=== PATIENT | female | born 1995 | race Caucasian/White ===

== ENCOUNTER 2018-04-28 00:22 | Inpatient (IN) | payer OTHER ==
[2018-04-28] MEDS ORDERED: Carboprost Tromethamine 250 MCG/1 ML Amp IM PRN (00:31)
[2018-04-28] MEDS ORDERED: Misoprostol 200 MCG Tab PO PRN (00:31)
[2018-04-28] MEDS ORDERED: Sodium Chloride 0.9% 2.5 ML Syringe FLUSH PRN (00:31)
[2018-04-28] MEDS ORDERED: Water For Irrigation,Sterile 1,000 ML Container IRR PRN (00:31)
[2018-04-28] MEDS ORDERED: Lidocaine 1% 50 ML MDV INJECT PRN (00:31)
[2018-04-28] MEDS ORDERED: Tranexamic Acid 1,000 MG in Sodium Chloride 0.9% 100 ML IV PRN (00:31)
[2018-04-28] MEDS ORDERED: Misoprostol 25 MCG (1/4 of 100 MCG) Tab PO PRN ×2 (00:31→06:56)
[2018-04-28] MEDS ORDERED: Sodium Chloride 0.9% 10 ML Syringe FLUSH PRN (00:31)
[2018-04-28] MEDS ORDERED: Methylergonovine 0.2 MG/1 ML Amp IM PRN (00:31)
[2018-04-28] MEDS ORDERED: Misoprostol 25 MCG (1/4 of 100 MCG) Tab VAG PRN ×2 (00:31)
[2018-04-28] MEDS ORDERED: Terbutaline 1 MG/ML SDV SUBCUT PRN (00:31)
[2018-04-28] MEDS ORDERED: Butorphanol 1 MG/ML SDV IVPUSH PRN (00:31)
[2018-04-28] MEDS ORDERED: Nalbuphine 10 MG/1 ML Vial IVPUSH PRN (00:31)
[2018-04-28] MEDS ORDERED: Oxytocin/0.9 % Sodium Chloride 30 UNIT/500 ML BAG IV SCH ×2 (00:45)
[2018-04-28] MEDS: Lactated Ringers 1,000 ML IV SCH ×3 (04:42→11:23)
--- NOTE | 2018-04-28 08:16 | PCM.LDHP ---
L&D History of Present Illness - General Date of Service: 04/28/18 Admit Problem/Dx: Patient Status Order with Admit Dx/Problem 04/28/18 00:31 Patient Status [ADT] Routine Admission Diagnosis/Problem Admission Diagnosis/Problem 04/28/18 08:11 22 yo EDC 04/22/2018 40 6/7wks, A+, RI, GBS neg. IOL GDMA1, post dates Source of Information: Patient History Limitations: Reports: No Limitations - History of Present Illness Improves with: Reports: None Worsens with: Reports: None Associated Symptoms: Reports: N - Related Data Allergies/Adverse Reactions: Allergies Allergy/AdvReac Type Severity Reaction Status Date / Time No Known Allergies Allergy Verified 04/28/18 00:29 Home Medications: Home Meds Multivitamin [Multi-Vitamin Daily] 1 each PO 04/28/18 [History] H&P Review of Systems - Review of Systems: Review Of Systems: See Below General: Reports: No Symptoms HEENT: Reports: No Symptoms Pulmonary: Reports: No Symptoms Cardiovascular: Reports: No Symptoms Gastrointestinal: Reports: No Symptoms Genitourinary: Reports: No Symptoms Musculoskeletal: Reports: No Symptoms Skin: Reports: No Symptoms Psychiatric: Reports: No Symptoms Neurological: Reports: No Symptoms Hematologic/Lymphatic: Reports: No Symptoms Immunologic: Reports: No Symptoms L&D Exam - Exam Exam: See Below - Vital Signs Weight: 87.997 kg - OB Specific Contraction Intensity: Mild Movement: Active Heart Tones: Present Heart Tones per Min: 135 Heart Rate (FHR) Variability: Moderate (6-25 bmp) Presentation: Vertex Estimated Weight: 3200 - Shaver Score Shaver Score Cervix Position: Anterior Shaver Score Consistency: Medium Shaver Score Effacement: >80% Shaver Score Dilation: 3-4 cm Shaver Score 's Station: -2 Shaver Score Total: 9 - Exam General: Alert, Oriented, Cooperative HEENT: Hearing Intact Lungs: Clear to Auscultation, Normal Respiratory Effort Cardiovascular: Regular Rate, Regular Rhythm, Normal S1, Normal S2 GI/Abdominal Exam: Normal Bowel Sounds, Soft, Non-Tender, No Organomegaly, No Distention, No Abnormal Bruit, No Mass, Pelvis Stable Rectal Exam: Deferred Genitourinary: Cervical dilitation Back Exam: Normal Inspection, Full Range of Motion Extremities: Normal Inspection, Normal Range of Motion, Non-Tender, No Pedal Edema, Normal Capillary Refill Skin: Warm, Dry, Intact Neurological: Cranial Nerves Intact, Reflexes Equal Bilateral, Strength Equal Bilateral, Normal Speech, Normal Tone Psychiatric: Alert, Normal Affect, Normal Mood - Patient Data Lab Results Last 24 hrs: Laboratory Results - last 24 hr 04/28/18 04/28/18 Range/Units 00:55 00:55 WBC 9.41 (4.0-11.0) K/uL RBC 3.87 L (4.30-5.90) M/uL Hgb 11.8 L (12.0-16.0) g/dL Hct 36.5 (36.0-46.0) % MCV 94.3 (80.0-98.0) fL MCH 30.5 (27.0-32.0) pg MCHC 32.3 (31.0-37.0) g/dL RDW Std Deviation 42.8 (28.0-62.0) fl RDW Coeff of Deyvi 13 (11.0-15.0) % Plt Count 192 (150-400) K/uL MPV 11.20 (7.40-12.00) fL Blood Type A POSITIVE Antibody Screen NEGATIVE Result Diagrams: 04/28/18 00:55 - Problem List (1) Supervision of normal IUP (intrauterine ) in primigravida SNOMED Code(s): 71635211, 847283456, 983875760, 801853394 ICD Code: Z34.00 - ENCNTR FOR SUPRVSN OF NORMAL FIRST , UNSP TRIMESTER Status: Acute Priority: High Current Visit: Yes Qualifiers: Trimester: third trimester Qualified Code(s): Z34.03 - Encounter for supervision of normal first , third trimester (2) GDM (gestational diabetes mellitus), class A1 SNOMED Code(s): 10932794 ICD Code: O24.410 - GESTATIONAL DIABETES MELLITUS IN , DIET CONTROLLED Status: Acute Priority: High Current Visit: Yes Problem List Initiated/Reviewed/Updated: Yes Orders Last 24hrs: Active Orders 24 hr Category Date Time Status Patient Status [ADT] Routine ADT 04/28/18 00:31 Active Bedrest Bathroom Privileges [RC] ASDIRECTED Care 04/28/18 00:31 Active Communication Order [RC] ASDIRECTED Care 04/28/18 00:31 Active Communication Order [RC] ASDIRECTED Care 04/28/18 00:31 Active May Shower [RC] ASDIRECTED Care 04/28/18 00:31 Active Notify Provider [RC] PRN Care 04/28/18 00:31 Active Notify Provider [RC] PRN Care 04/28/18 00:31 Active Notify Provider [RC] STAT Care 04/28/18 00:31 Active Oxygen Therapy [RC] ASDIRECTED Care 04/28/18 00:31 Active Up ad Sandra [RC] ASDIRECTED Care 04/28/18 00:31 Active Vital Signs [RC] PER UNIT ROUTINE Care 04/28/18 00:31 Active Vital Signs [RC] PER UNIT ROUTINE Care 04/28/18 00:31 Active Regular Diet [DIET] Diet 04/28/18 Breakfast Active Butorphanol [Stadol] Med 04/28/18 00:31 Active 1 mg IVPUSH Q1H PRN Carboprost Tromethamine [Hemabate DS] Med 04/28/18 00:31 Active 250 mcg IM ASDIRECTED PRN Lactated Ringers [Ringers, Lactated] 1,000 ml Med 04/28/18 00:45 Active IV ASDIRECTED Lidocaine 1% [Xylocaine 1%] Med 04/28/18 00:31 Active 50 ml INJECT ONETIME PRN Methylergonovine [Methergine] Med 04/28/18 00:31 Active 0.2 mg IM ASDIRECTED PRN Nalbuphine [Nubain] Med 04/28/18 00:31 Active 10 mg IVPUSH Q1H PRN Oxytocin/0.9 % Sodium Chloride [Oxytocin 30 Unit/500 ML Med 04/28/18 00:45 Active -NS] 30 unit in 500 ml IV TITRATE Oxytocin/0.9 % Sodium Chloride [Oxytocin 30 Unit/500 ML Med 04/28/18 00:45 Active -NS] 30 unit in 500 ml IV TITRATE Sodium Chloride 0.9% [Saline Flush] Med 04/28/18 00:31 Active 10 ml FLUSH ASDIRECTED PRN Sodium Chloride 0.9% [Saline Flush] Med 04/28/18 00:31 Active 2.5 ml FLUSH ASDIRECTED PRN Terbutaline [Brethine] Med 04/28/18 00:31 Active 0.25 mg SUBCUT ASDIRECTED PRN Tranexamic Acid [Cyklokapron] 1,000 mg Med 04/28/18 00:31 Active Sodium Chloride 0.9% [Normal Saline] 100 ml IV ONETIME Water For Irrigation,Sterile [Sterile Water for Med 04/28/18 00:31 Active Irrigation] 1,000 ml IRR ASDIRECTED PRN miSOPROStol [Cytotec] Med 04/28/18 00:31 Active 200 mcg PO ONETIME PRN miSOPROStol [Cytotec] Med 04/28/18 00:31 Active 25 mcg PO ONETIME PRN miSOPROStol [Cytotec] Med 04/28/18 06:56 Active 25 mcg PO Q4H PRN miSOPROStol [Cytotec] Med 04/28/18 00:31 Active 25 mcg VAG ONETIME PRN miSOPROStol [Cytotec] Med 04/28/18 00:31 Active 25 mcg VAG Q4H PRN Scalp Electrode [WOMSER] Per Unit Routine Oth 04/28/18 00:31 Ordered Medication Administration Instruction [OM.PC] Q3H Oth 04/28/18 00:45 Ordered Peripheral IV Insertion Adult [OM.PC] Routine Oth 04/28/18 00:31 Ordered Resuscitation Status Routine Resus Stat 04/28/18 00:31 Ordered Medication Orders Butorphanol Tartrate (Stadol) 1 mg IVPUSH Q1H PRN PRN Reason: Pain Carboprost Tromethamine (Hemabate Ds) 250 mcg IM ASDIRECTED PRN PRN Reason: Post Hemorrhage Lactated Ringer's (Ringers, Lactated) 1,000 mls @ 150 mls/hr IV ASDIRECTED KANDI Last Admin: 04/28/18 06:20 Dose: 150 mls/hr Infusion: 04/28/18 05:43 Dose: 999 mls/hr Admin: 04/28/18 04:42 Dose: 999 mls/hr Oxytocin/Sodium Chloride (Oxytocin 30 Unit/500 Ml-Ns) 30 unit in 500 mls @ 500 mls/hr IV TITRATE KANDI Oxytocin/Sodium Chloride (Oxytocin 30 Unit/500 Ml-Ns) 30 unit in 500 mls @ 2 mls/hr IV TITRATE [facility]; Protocol Tranexamic Acid 1,000 mg/ (Sodium Chloride) 110 mls @ 660 mls/hr IV ONETIME PRN PRN Reason: Bleeding Lidocaine HCl (Xylocaine 1%) 50 ml INJECT ONETIME PRN PRN Reason: Laceration repair Methylergonovine Maleate (Methergine) 0.2 mg IM ASDIRECTED PRN PRN Reason: Post Hemorrhage Misoprostol (Cytotec) 200 mcg PO ONETIME PRN PRN Reason: Post Hemorrhage Misoprostol (Cytotec) 25 mcg VAG ONETIME PRN PRN Reason: Cervical Ripening Last Admin: 04/28/18 02:56 Dose: 25 mcg Misoprostol (Cytotec) 25 mcg VAG Q4H PRN PRN Reason: Cervical Ripening Last Admin: 04/28/18 07:13 Dose: 25 mcg Misoprostol (Cytotec) 25 mcg PO ONETIME PRN PRN Reason: Cervical Ripening Last Admin: 04/28/18 03:02 Dose: 25 mcg Misoprostol (Cytotec) 25 mcg PO Q4H PRN PRN Reason: Other Last Admin: 04/28/18 07:18 Dose: 25 mcg Nalbuphine HCl (Nubain) 10 mg IVPUSH Q1H PRN PRN Reason: Pain (severe 7-10) Sodium Chloride (Saline Flush) 10 ml FLUSH ASDIRECTED PRN PRN Reason: Keep Vein Open Sodium Chloride (Saline Flush) 2.5 ml FLUSH ASDIRECTED PRN PRN Reason: Keep Vein Open Sterile Water (Sterile Water For Irrigation) 1,000 ml IRR ASDIRECTED PRN PRN Reason: delivery Terbutaline Sulfate (Brethine) 0.25 mg SUBCUT ASDIRECTED PRN PRN Reason: Tacysystole Assessment/Plan Comment:: IOL A: 22 yo EDC 04/22/2018 40 6/7wks, A+, RI, GBS neg. IOL GDMA1, post dates. Glucose well controlled during P: Admit, cytotec to pitocin, anticipate . Dr Solis update
[2018-04-28] MEDS ORDERED: fentaNYL 100 MCG/2 ML SDV ONE (10:54)
[2018-04-28] MEDS ORDERED: Ropivacaine 0.2% 2 MG/ML 20 ML SDV ONE (10:55)
[2018-04-28] MEDS ORDERED: Ropivacaine HCl/PF 100 ML ONE (10:55)
--- NOTE | 2018-04-28 11:37 | PCM.PREANE ---
Preanesthetic Assessment - Anesthesia/Transfusion/Family Hx Anesthesia History: Prior Anesthesia Without Reaction Family History of Anesthesia Reaction: No Transfusion History: No Prior Transfusion(s) Intubation History: Unknown - Review of Systems General: No Symptoms Pulmonary: No Symptoms Cardiovascular: No Symptoms Gastrointestinal: No Symptoms Neurological: No Symptoms Other: Reports: None - Physical Assessment NPO Status Date: 04/28/18 NPO Status Time: 11:35 (sips and chips) Pulse: 76 O2 Sat by Pulse Oximetry: 100 Respiratory Rate: 24 Blood Pressure: 124/76 Height: 5 ft 8 in Weight: 87.997 kg ASA Class: 2 Mental Status: Alert & Oriented x3 Airway Class: Mallampati = 2 Dentition: Reports: Normal Dentition Thyro-Mental Finger Breadths: 3 Mouth Opening Finger Breadths: 3 ROM/Head Extension: Full Lungs: Clear to Auscultation, Normal Respiratory Effort Cardiovascular: Regular Rate, Regular Rhythm - Lab Values: Laboratory Last Values WBC 9.41 K/uL (4.0-11.0) 04/28/18 00:55 RBC 3.87 M/uL (4.30-5.90) L 04/28/18 00:55 Hgb 11.8 g/dL (12.0-16.0) L 04/28/18 00:55 Hct 36.5 % (36.0-46.0) 04/28/18 00:55 MCV 94.3 fL (80.0-98.0) 04/28/18 00:55 MCH 30.5 pg (27.0-32.0) 04/28/18 00:55 MCHC 32.3 g/dL (31.0-37.0) 04/28/18 00:55 RDW Std Deviation 42.8 fl (28.0-62.0) 04/28/18 00:55 RDW Coeff of Deyvi 13 % (11.0-15.0) 04/28/18 00:55 Plt Count 192 K/uL (150-400) 04/28/18 00:55 MPV 11.20 fL (7.40-12.00) 04/28/18 00:55 Blood Type A POSITIVE 04/28/18 00:55 Antibody Screen NEGATIVE 04/28/18 00:55 - Allergies Allergies/Adverse Reactions: Allergies Allergy/AdvReac Type Severity Reaction Status Date / Time No Known Allergies Allergy Verified 04/28/18 00:29 - Blood Blood Available: No - Acknowledgements Anesthesia Type Planned: Epidural Pt an Appropriate Candidate for the Planned Anesthesia: Yes Alternatives and Risks of Anesthesia Discussed w Pt/Guardian: Yes Pt/Guardian Understands and Agrees with Anesthesia Plan: Yes PreAnesthesia Questionnaire Genitourinary History: Reports: Other (See Below) Other Genitourinary History: At age of 2 pt had surgery to remove an extra ureter [employer] History: Reports: Dermatologic History: Reports: Other (See Below) Other Dermatologic History: Acne - Past Surgical History Female Surgical History: Reports: None - HOME MEDS Home Medications: Home Meds Multivitamin [Multi-Vitamin Daily] 1 each PO 04/28/18 [History] - CURRENT (IN HOUSE) MEDS Current Meds: Current Medications Butorphanol Tartrate (Stadol) 1 mg IVPUSH Q1H PRN PRN Reason: Pain Carboprost Tromethamine (Hemabate Ds) 250 mcg IM ASDIRECTED PRN PRN Reason: Post Hemorrhage Lactated Ringer's (Ringers, Lactated) 1,000 mls @ 150 mls/hr IV ASDIRECTED KANDI Last Admin: 04/28/18 11:23 Dose: 500 mls/hr Oxytocin/Sodium Chloride (Oxytocin 30 Unit/500 Ml-Ns) 30 unit in 500 mls @ 500 mls/hr IV TITRATE KANDI Oxytocin/Sodium Chloride (Oxytocin 30 Unit/500 Ml-Ns) 30 unit in 500 mls @ 2 mls/hr IV TITRATE KANDI; Protocol Tranexamic Acid 1,000 mg/ (Sodium Chloride) 110 mls @ 660 mls/hr IV ONETIME PRN PRN Reason: Bleeding Lidocaine HCl (Xylocaine 1%) 50 ml INJECT ONETIME PRN PRN Reason: Laceration repair Methylergonovine Maleate (Methergine) 0.2 mg IM ASDIRECTED PRN PRN Reason: Post Hemorrhage Misoprostol (Cytotec) 200 mcg PO ONETIME PRN PRN Reason: Post Hemorrhage Misoprostol (Cytotec) 25 mcg VAG ONETIME PRN PRN Reason: Cervical Ripening Last Admin: 04/28/18 02:56 Dose: 25 mcg Misoprostol (Cytotec) 25 mcg VAG Q4H PRN PRN Reason: Cervical Ripening Last Admin: 04/28/18 07:13 Dose: 25 mcg Misoprostol (Cytotec) 25 mcg PO ONETIME PRN PRN Reason: Cervical Ripening Last Admin: 04/28/18 03:02 Dose: 25 mcg Misoprostol (Cytotec) 25 mcg PO Q4H PRN PRN Reason: Other Last Admin: 04/28/18 07:18 Dose: 25 mcg Nalbuphine HCl (Nubain) 10 mg IVPUSH Q1H PRN PRN Reason: Pain (severe 7-10) Last Admin: 04/28/18 10:31 Dose: 10 mg Sodium Chloride (Saline Flush) 10 ml FLUSH ASDIRECTED PRN PRN Reason: Keep Vein Open Sodium Chloride (Saline Flush) 2.5 ml FLUSH ASDIRECTED PRN PRN Reason: Keep Vein Open Sterile Water (Sterile Water For Irrigation) 1,000 ml IRR ASDIRECTED PRN PRN Reason: delivery Terbutaline Sulfate (Brethine) 0.25 mg SUBCUT ASDIRECTED PRN PRN Reason: Tacysystole Discontinued Medications Fentanyl (Sublimaze) Confirm Administered Dose 200 mcg .ROUTE .STK-MED ONE Stop: 04/28/18 10:55 Ropivacaine (Naropin 0.2%) Confirm Administered Dose 100 mls @ as directed .ROUTE .STK-MED ONE Stop: 04/28/18 10:56 Ropivacaine (Naropin 0.2%) Confirm Administered Dose 20 ml .ROUTE .STK-MED ONE Stop: 04/28/18 10:56
--- NOTE | 2018-04-28 12:37 | PCM.DEL ---
L & D Note - General Info Date of Service: 04/28/18 Mother's Due Date: 04/22/18 - Delivery Note Labor: Spontaneous Delivery Outcome: Stillbirth Infant Delivery Method: Spontaneous Vaginal Delivery-Single Delivery Mode: Spontaneous Presentation: Vertex Nuchal Cord: None Anesthesia Type: Epidural Episiotomy Type: None Laceration: None Placenta: Intact, Spontaneous Cord: 3 Vessels Estimated Blood Loss: 150 Resuscitation Needed: No Score 1 min: 9 Score 5 min: 9 Second Stage Interventions: Reports: Pushing, Pulls Own Legs Back Induction Criteria - Shaver Score Shaver Score Dilation: 3-4 cm Shaver Score Effacement: 60-70% Shaver Score 's Station: -2 Shaver Score Consistency: Soft Shaver Score Cervix Position: Anterior Shaver Score Total: 9 Shaver Score Presenting Part: Reports: Cephalic - Induction Gestational Age >/= 39 wks: Yes Medical Indication: Post dates GDMA1 Reassuring Monitoring Strip: Yes Absence of Tachy Systole: Yes - General Info Date of Service: 04/28/18 Functional Status: Reports: Pain Controlled - Review of Systems General: Reports: No Symptoms HEENT: Reports: No Symptoms Pulmonary: Reports: No Symptoms Cardiovascular: Reports: No Symptoms Gastrointestinal: Reports: No Symptoms Genitourinary: Reports: No Symptoms Musculoskeletal: Reports: No Symptoms Skin: Reports: No Symptoms Neurological: Reports: No Symptoms Psychiatric: Reports: No Symptoms - Patient Data Vitals - Most Recent: Last Vital Signs Temp Pulse 76 04/28/18 11:37 Resp 24 H 04/28/18 11:37 BP 124/76 04/28/18 11:37 Pulse Ox 100 04/28/18 11:37 Weight - Most Recent: 87.997 kg Lab Results Last 24 Hours: Laboratory Results - last 24 hr 04/28/18 04/28/18 Range/Units 00:55 00:55 WBC 9.41 (4.0-11.0) K/uL RBC 3.87 L (4.30-5.90) M/uL Hgb 11.8 L (12.0-16.0) g/dL Hct 36.5 (36.0-46.0) % MCV 94.3 (80.0-98.0) fL MCH 30.5 (27.0-32.0) pg MCHC 32.3 (31.0-37.0) g/dL RDW Std Deviation 42.8 (28.0-62.0) fl RDW Coeff of Deyvi 13 (11.0-15.0) % Plt Count 192 (150-400) K/uL MPV 11.20 (7.40-12.00) fL Blood Type A POSITIVE Antibody Screen NEGATIVE Med Orders - Current: Current Medications Butorphanol Tartrate (Stadol) 1 mg IVPUSH Q1H PRN PRN Reason: Pain Carboprost Tromethamine (Hemabate Ds) 250 mcg IM ASDIRECTED PRN PRN Reason: Post Hemorrhage Lactated Ringer's (Ringers, Lactated) 1,000 mls @ 150 mls/hr IV ASDIRECTED KANDI Last Infusion: 04/28/18 11:53 Dose: 150 mls/hr Oxytocin/Sodium Chloride (Oxytocin 30 Unit/500 Ml-Ns) 30 unit in 500 mls @ 500 mls/hr IV TITRATE KANDI Oxytocin/Sodium Chloride (Oxytocin 30 Unit/500 Ml-Ns) 30 unit in 500 mls @ 2 mls/hr IV TITRATE KANDI; Protocol Tranexamic Acid 1,000 mg/ (Sodium Chloride) 110 mls @ 660 mls/hr IV ONETIME PRN PRN Reason: Bleeding Lidocaine HCl (Xylocaine 1%) 50 ml INJECT ONETIME PRN PRN Reason: Laceration repair Methylergonovine Maleate (Methergine) 0.2 mg IM ASDIRECTED PRN PRN Reason: Post Hemorrhage Misoprostol (Cytotec) 200 mcg PO ONETIME PRN PRN Reason: Post Hemorrhage Misoprostol (Cytotec) 25 mcg VAG ONETIME PRN PRN Reason: Cervical Ripening Last Admin: 04/28/18 02:56 Dose: 25 mcg Misoprostol (Cytotec) 25 mcg VAG Q4H PRN PRN Reason: Cervical Ripening Last Admin: 04/28/18 07:13 Dose: 25 mcg Misoprostol (Cytotec) 25 mcg PO ONETIME PRN PRN Reason: Cervical Ripening Last Admin: 04/28/18 03:02 Dose: 25 mcg Misoprostol (Cytotec) 25 mcg PO Q4H PRN PRN Reason: Other Last Admin: 04/28/18 07:18 Dose: 25 mcg Nalbuphine HCl (Nubain) 10 mg IVPUSH Q1H PRN PRN Reason: Pain (severe 7-10) Last Admin: 04/28/18 10:31 Dose: 10 mg Sodium Chloride (Saline Flush) 10 ml FLUSH ASDIRECTED PRN PRN Reason: Keep Vein Open Sodium Chloride (Saline Flush) 2.5 ml FLUSH ASDIRECTED PRN PRN Reason: Keep Vein Open Sterile Water (Sterile Water For Irrigation) 1,000 ml IRR ASDIRECTED PRN PRN Reason: delivery Terbutaline Sulfate (Brethine) 0.25 mg SUBCUT ASDIRECTED PRN PRN Reason: Tacysystole Discontinued Medications Fentanyl (Sublimaze) Confirm Administered Dose 200 mcg .ROUTE .STK-MED ONE Stop: 04/28/18 10:55 Ropivacaine (Naropin 0.2%) Confirm Administered Dose 100 mls @ as directed .ROUTE .STK-MED ONE Stop: 04/28/18 10:56 Ropivacaine (Naropin 0.2%) Confirm Administered Dose 20 ml .ROUTE .STK-MED ONE Stop: 04/28/18 10:56 - Exam General: Alert, Oriented, Cooperative, No Acute Distress Lungs: Normal Respiratory Effort GI/Abdominal Exam: Soft, Non-Tender, No Organomegaly, No Distention, No Abnormal Bruit, No Mass, Pelvis Stable (Female) Exam: Normal External Exam, Normal Bimanual Exam Back Exam: Normal Inspection, Full Range of Motion Extremities: Normal Range of Motion, Non-Tender, No Pedal Edema Skin: Warm, Dry, Intact Wound/Incisions: Healing Well Neurological: No New Focal Deficit, Normal Speech, Normal Tone, Strength Equal Bilateral Psy/Mental Status: Alert, Normal Affect, Normal Mood - Problem List & Annotations (1) Supervision of normal IUP (intrauterine ) in primigravida SNOMED Code(s): 60405363, 375001054, 604590657, 343320124 Code(s): Z34.00 - ENCNTR FOR SUPRVSN OF NORMAL FIRST , UNSP TRIMESTER Status: Acute Priority: High Current Visit: Yes Qualifiers: Trimester: third trimester Qualified Code(s): Z34.03 - Encounter for supervision of normal first , third trimester (2) GDM (gestational diabetes mellitus), class A1 SNOMED Code(s): 29227917 Code(s): O24.410 - GESTATIONAL DIABETES MELLITUS IN , DIET CONTROLLED Status: Acute Priority: High Current Visit: Yes (3) (normal spontaneous vaginal delivery) SNOMED Code(s): 60591867 Code(s): O80 - ENCOUNTER FOR FULL-TERM UNCOMPLICATED DELIVERY Status: Acute Priority: High Current Visit: Yes - Problem List Review Problem List Initiated/Reviewed/Updated: Yes - My Orders Last 24 Hours: My Active Orders 04/28/18 00:31 Patient Status [ADT] Routine Bedrest Bathroom Privileges [RC] ASDIRECTED Communication Order [RC] ASDIRECTED Communication Order [RC] ASDIRECTED May Shower [RC] ASDIRECTED Notify Provider [RC] PRN Notify Provider [RC] PRN Notify Provider [RC] STAT Oxygen Therapy [RC] ASDIRECTED Up ad Sandra [RC] ASDIRECTED Vital Signs [RC] PER UNIT ROUTINE Vital Signs [RC] PER UNIT ROUTINE Butorphanol [Stadol] 1 mg IVPUSH Q1H PRN Carboprost Tromethamine [Hemabate DS] 250 mcg IM ASDIRECTED PRN Lidocaine 1% [Xylocaine 1%] 50 ml INJECT ONETIME PRN Methylergonovine [Methergine] 0.2 mg IM ASDIRECTED PRN Nalbuphine [Nubain] 10 mg IVPUSH Q1H PRN Sodium Chloride 0.9% [Saline Flush] 10 ml FLUSH ASDIRECTED PRN Sodium Chloride 0.9% [Saline Flush] 2.5 ml FLUSH ASDIRECTED PRN Terbutaline [Brethine] 0.25 mg SUBCUT ASDIRECTED PRN Tranexamic Acid [Cyklokapron] 1,000 mg Sodium Chloride 0.9% [Normal Saline] 100 ml IV ONETIME Water For Irrigation,Sterile [Sterile Water for Irrigation] 1,000 ml IRR ASDIRECTED PRN miSOPROStol [Cytotec] 200 mcg PO ONETIME PRN miSOPROStol [Cytotec] 25 mcg PO ONETIME PRN miSOPROStol [Cytotec] 25 mcg VAG ONETIME PRN miSOPROStol [Cytotec] 25 mcg VAG Q4H PRN Scalp Electrode [WOMSER] Per Unit Routine Peripheral IV Insertion Adult [OM.PC] Routine Resuscitation Status Routine 04/28/18 00:45 Lactated Ringers [Ringers, Lactated] 1,000 ml IV ASDIRECTED Oxytocin/0.9 % Sodium Chloride [Oxytocin 30 Unit/500 ML-NS] 30 unit in 500 ml IV TITRATE Oxytocin/0.9 % Sodium Chloride [Oxytocin 30 Unit/500 ML-NS] 30 unit in 500 ml IV TITRATE Medication Administration Instruction [OM.PC] Q3H 04/28/18 06:56 miSOPROStol [Cytotec] 25 mcg PO Q4H PRN 04/28/18 Breakfast Regular Diet [DIET] - Plan Plan:: IOL A: 22 yo EDC 04/22/2018 40 6/7wks, A+, RI, GBS neg. IOL GDMA1, post dates. Glucose well controlled during P: Admit, cytotec to pitocin, anticipate . Dr Solis update Delivery A: of viable female, APGARS 9/9, Wt pending, Intact, EBL 150cc, Mother and baby bonding well P: Routine pp plan of care
[2018-04-28] MEDS ORDERED: Witch Hazel Medicated Pads 40/Jar TOP PRN (12:38)
[2018-04-28] MEDS ORDERED: Ibuprofen 800 MG Tab PO PRN (12:38)
[2018-04-28] MEDS ORDERED: Benzocaine/Menthol 20%-0.5% Spray 78 GM Cannister TOP PRN (12:38)
[2018-04-28] MEDS ORDERED: Docusate Sodium 100 MG Cap PO PRN (12:38)
[2018-04-28] MEDS ORDERED: Ibuprofen 400 MG Tab PO PRN (12:38)
[2018-04-28] MEDS ORDERED: Bisacodyl 10 MG Supp RECTAL PRN (12:38)
[2018-04-28] MEDS ORDERED: Lanolin 100% Cream 7 GM Tube TOP PRN (12:38)
[2018-04-28] MEDS ORDERED: Acetaminophen 500 MG Tab PO PRN ×2 (12:38)
[2018-04-28] MEDS ORDERED: oxyCODONE 5 MG Tab PO PRN (12:38)
--- NOTE | 2018-04-28 15:44 | PCM48HPAN ---
Post Anesthesia Note - EVALUATION WITHIN 48HRS OF ANESTHETIC Vital Signs in Normal Range: Yes Patient Participated in Evaluation: Yes Respiratory Function Stable: Yes Airway Patent: Yes Cardiovascular Function Stable: Yes Hydration Status Stable: Yes Pain Control Satisfactory: Yes Nausea and Vomiting Control Satisfactory: Yes Mental Status Recovered: Yes Pulse Rate: 76 Resp Rate: 24 Blood Pressure: 124/76
--- NOTE | 2018-04-29 08:09 | PCM.DCSUM1 ---
Discharge Summary - Hospital Course Free Text/Narrative:: Discharge home with . Follow up in 6 weeks for post . Diagnosis: Stroke: No - Discharge Data Discharge Date: 04/29/18 Discharge Disposition: Home, Self-Care 01 Condition: Good - Discharge Diagnosis/Problem(s) (1) Supervision of normal IUP (intrauterine ) in primigravida SNOMED Code(s): 82753088, 812666806, 534155224, 091920877 ICD Code: Z34.00 - ENCNTR FOR SUPRVSN OF NORMAL FIRST , UNSP TRIMESTER Status: Acute Priority: High Current Visit: Yes Qualifiers: Trimester: third trimester Qualified Code(s): Z34.03 - Encounter for supervision of normal first , third trimester (2) GDM (gestational diabetes mellitus), class A1 SNOMED Code(s): 55500562 ICD Code: O24.410 - GESTATIONAL DIABETES MELLITUS IN , DIET CONTROLLED Status: Acute Priority: High Current Visit: Yes (3) (normal spontaneous vaginal delivery) SNOMED Code(s): 65896395 ICD Code: O80 - ENCOUNTER FOR FULL-TERM UNCOMPLICATED DELIVERY Status: Acute Priority: High Current Visit: Yes - Patient Instructions Diet: Usual Diet as Tolerated Activity: As Tolerated, No Strenuous Activities, Rest and Relax Today Driving: May Drive Today Showering/Bathing: May Shower Notify Provider of: Fever, Increased Pain, Swelling and Redness, Nausea and/or Vomiting Other/Special Instructions: Discharge home with infant. Follow up in 6 weeks for post . - Discharge Plan *PRESCRIPTION DRUG MONITORING PROGRAM REVIEWED*: Not Applicable *COPY OF PRESCRIPTION DRUG MONITORING REPORT IN PATIENT JAMES: Not Applicable Home Medications: Home Meds Multivitamin [Multi-Vitamin Daily] 1 each PO 04/28/18 [History] Referrals: [facility] [Outside] Latoya Gordon CNM [Mid-] - 06/09/18 10:45 am - General Info Date of Service: 04/29/18 Admission Dx/Problem (Free Text: Patient Status Order with Admit Dx/Problem 04/28/18 00:31 Patient Status [ADT] Routine Admission Diagnosis/Problem Admission Diagnosis/Problem 04/28/18 08:11 22 yo EDC 04/22/2018 40 6/7wks, A+, RI, GBS neg. IOL GDMA1, post dates Functional Status: Reports: Pain Controlled, Tolerating Diet, Ambulating, Urinating - Review of Systems General: Reports: No Symptoms HEENT: Reports: No Symptoms Pulmonary: Reports: No Symptoms Cardiovascular: Reports: No Symptoms Gastrointestinal: Reports: No Symptoms Genitourinary: Reports: No Symptoms Musculoskeletal: Reports: No Symptoms Skin: Reports: No Symptoms Neurological: Reports: No Symptoms Psychiatric: Reports: No Symptoms - Patient Data Vitals - Most Recent: Last Vital Signs Temp 36.7 C 04/29/18 07:40 Pulse 85 04/29/18 07:40 Resp 16 04/29/18 07:40 BP 109/70 04/29/18 07:40 Pulse Ox 99 04/29/18 07:40 Weight - Most Recent: 87.997 kg Med Orders - Current: Current Medications Acetaminophen (Tylenol Extra Strength) 500 mg PO Q4H PRN PRN Reason: Pain Acetaminophen (Tylenol Extra Strength) 1,000 mg PO Q4H PRN PRN Reason: Pain Benzocaine/Menthol (Dermoplast Pain Relief 20%-0.5% [place]) 78 gm TOP ASDIRECTED PRN PRN Reason: Perineal Comfort Measure Bisacodyl (Dulcolax) 10 mg RECTAL ONETIME PRN PRN Reason: Constipation Docusate Sodium (Colace) 100 mg PO BID PRN PRN Reason: Constipation Emollient Ointment (Lansinoh Hpa) 0 gm TOP ASDIRECTED PRN PRN Reason: Sore Nipples Ibuprofen (Motrin) 400 mg PO Q4H PRN PRN Reason: Pain Ibuprofen (Motrin) 800 mg PO Q6H PRN PRN Reason: Pain Last Admin: 04/28/18 18:10 Dose: 800 mg Oxycodone HCl (Oxycodone) 5 mg PO Q2H PRN PRN Reason: Pain Witch Concepcion (Tucks) 1 pad TOP ASDIRECTED PRN PRN Reason: comfort care Discontinued Medications Butorphanol Tartrate (Stadol) 1 mg IVPUSH Q1H PRN PRN Reason: Pain Carboprost Tromethamine (Hemabate Ds) 250 mcg IM ASDIRECTED PRN PRN Reason: Post Hemorrhage Fentanyl (Sublimaze) Confirm Administered Dose 200 mcg .ROUTE .STK-MED ONE Stop: 04/28/18 10:55 Lactated Ringer's (Ringers, Lactated) 1,000 mls @ 150 mls/hr IV ASDIRECTED KANDI Last Infusion: 04/28/18 12:15 Dose: 0 mls/hr Oxytocin/Sodium Chloride (Oxytocin 30 Unit/500 Ml-Ns) 30 unit in 500 mls @ 500 mls/hr IV TITRATE KANDI Last Admin: 04/28/18 13:13 Dose: 500 mls/hr Oxytocin/Sodium Chloride (Oxytocin 30 Unit/500 Ml-Ns) 30 unit in 500 mls @ 2 mls/hr IV TITRATE KANDI; Protocol Tranexamic Acid 1,000 mg/ (Sodium Chloride) 110 mls @ 660 mls/hr IV ONETIME PRN PRN Reason: Bleeding Ropivacaine (Naropin 0.2%) Confirm Administered Dose 100 mls @ as directed .ROUTE .[employer] ONE Stop: 04/28/18 10:56 Lidocaine HCl (Xylocaine 1%) 50 ml INJECT ONETIME PRN PRN Reason: Laceration repair Methylergonovine Maleate (Methergine) 0.2 mg IM ASDIRECTED PRN PRN Reason: Post Hemorrhage Misoprostol (Cytotec) 200 mcg PO ONETIME PRN PRN Reason: Post Hemorrhage Misoprostol (Cytotec) 25 mcg VAG ONETIME PRN PRN Reason: Cervical Ripening Last Admin: 04/28/18 02:56 Dose: 25 mcg Misoprostol (Cytotec) 25 mcg VAG Q4H PRN PRN Reason: Cervical Ripening Last Admin: 04/28/18 07:13 Dose: 25 mcg Misoprostol (Cytotec) 25 mcg PO ONETIME PRN PRN Reason: Cervical Ripening Last Admin: 04/28/18 03:02 Dose: 25 mcg Misoprostol (Cytotec) 25 mcg PO Q4H PRN PRN Reason: Other Last Admin: 04/28/18 07:18 Dose: 25 mcg Nalbuphine HCl (Nubain) 10 mg IVPUSH Q1H PRN PRN Reason: Pain (severe 7-10) Last Admin: 04/28/18 10:31 Dose: 10 mg Ropivacaine (Naropin 0.2%) Confirm Administered Dose 20 ml .ROUTE .[employer]MED ONE Stop: 04/28/18 10:56 Sodium Chloride (Saline Flush) 10 ml FLUSH ASDIRECTED PRN PRN Reason: Keep Vein Open Sodium Chloride (Saline Flush) 2.5 ml FLUSH ASDIRECTED PRN PRN Reason: Keep Vein Open Sterile Water (Sterile Water For Irrigation) 1,000 ml IRR ASDIRECTED PRN PRN Reason: delivery Terbutaline Sulfate (Brethine) 0.25 mg SUBCUT ASDIRECTED PRN PRN Reason: Tacysystole - Exam General: Reports: Alert, Oriented, Cooperative, No Acute Distress Lungs: Reports: Normal Respiratory Effort GI/Abdominal Exam: Soft, Non-Tender (Female) Exam: Deferred Rectal (Female) Exam: Deferred Back Exam: Reports: Normal Inspection, Full Range of Motion Extremities: Normal Inspection, Normal Range of Motion, Non-Tender, No Pedal Edema, Normal Capillary Refill Skin: Reports: Warm, Dry, Intact Wound/Incisions: Reports: Healing Well Neurological: Reports: No New Focal Deficit, Normal Speech, Normal Tone, Strength Equal Bilateral Psy/Mental Status: Reports: Alert, Normal Affect, Normal Mood
== END 2018-04-29 16:20 | disposition home or self-care (01) | DRG 775 ==
LOC: MW.OBCHECK 00:22 → MW.OB 00:24 → MW.OBCHECK 00:31 → MW.OB 00:31 → OBSVTOIN 12:13 → MW.OB 16:16
PROVIDERS: ADMIT Obstetrics & Gynecology; ATTEND Obstetrics & Gynecology
PROC: 10E0XZZ Delivery of Products of Conception, External Approach (ICD-10-PCS; principal; 2018-04-28)
PROC: 3E0P7VZ Introduction of Hormone into Female Reproductive, Via Natural or Artificial Opening (ICD-10-PCS; 2018-04-28)
PROC: 3E033VJ Introduction of Other Hormone into Peripheral Vein, Percutaneous Approach (ICD-10-PCS; 2018-04-28)
PROC: 00HU33Z Insertion of Infusion Device into Spinal Canal, Percutaneous Approach (ICD-10-PCS; 2018-04-28)
DX: O24.420 Gestational diabetes mellitus in childbirth, diet controlled (principal); O48.0 Post-term pregnancy; Z3A.40 40 weeks gestation of pregnancy; Z37.0 Single live birth
CPT/HCPCS: 36415; 59020; 59409; 85027; 86850; 86900; 86901; A9270-GY; J2300; J2590; J7120

== ENCOUNTER 2019-12-03 05:08 | Inpatient (IN) | payer OTHER ==
[2019-12-03] MEDS ORDERED: Lidocaine 1% 50 ML MDV INJECT PRN (05:23)
[2019-12-03] MEDS ORDERED: Misoprostol 200 MCG Tab PO PRN (05:23)
[2019-12-03] MEDS ORDERED: Sodium Chloride 0.9% 10 ML SDV IV PRN (05:23)
[2019-12-03] MEDS ORDERED: Water For Irrigation,Sterile 1,000 ML Container IRR PRN (05:23)
[2019-12-03] MEDS ORDERED: Tranexamic Acid 1,000 MG in Sodium Chloride 0.9% 100 ML IV PRN (05:23)
[2019-12-03] MEDS ORDERED: Terbutaline 1 MG/ML SDV SUBCUT PRN (05:23)
[2019-12-03] MEDS ORDERED: Carboprost Tromethamine 250 MCG/1 ML Amp IM PRN (05:23)
[2019-12-03] MEDS ORDERED: Misoprostol 25 MCG (1/4 of 100 MCG) Tab VAG PRN ×2 (05:23)
[2019-12-03] MEDS ORDERED: Sodium Chloride 0.9% 10 ML Syringe FLUSH PRN (05:23)
[2019-12-03] MEDS ORDERED: Sodium Chloride 0.9% 2.5 ML Syringe FLUSH PRN (05:23)
[2019-12-03] MEDS ORDERED: Methylergonovine 0.2 MG/1 ML Amp IM PRN (05:23)
[2019-12-03] MEDS ORDERED: Nalbuphine 10 MG/1 ML Vial IVPUSH PRN (05:23)
[2019-12-03] MEDS ORDERED: Ondansetron 4 MG/2 ML SDV IVPUSH PRN (05:23)
[2019-12-03] MEDS ORDERED: Butorphanol 1 MG/ML SDV IVPUSH PRN (05:23)
[2019-12-03] MEDS ORDERED: Oxytocin/0.9 % Sodium Chloride 30 UNIT/500 ML BAG IV SCH ×2 (05:30)
[2019-12-03] MEDS ORDERED: Misoprostol 25 MCG (1/4 of 100 MCG) Tab PO ONE (05:31)
[2019-12-03] MEDS: Lactated Ringers 1,000 ML IV SCH ×2 (07:18→15:38)
[2019-12-03] MEDS ORDERED: Misoprostol 25 MCG (1/4 of 100 MCG) Tab PO SCH (11:30)
--- NOTE | 2019-12-03 15:55 | PCM.LDHP ---
L&D History of Present Illness - General Date of Service: 12/03/19 Admit Problem/Dx: Patient Status Order with Admit Dx/Problem 12/03/19 05:23 Patient Status [ADT] Routine Admission Diagnosis/Problem Admission Diagnosis/Problem 12/03/19 15:50 24yo EDC 12/10/2019 39 0/7wks, A+, RI, GBS neg. IOL for term Source of Information: Patient History Limitations: Reports: No Limitations - History of Present Illness Improves with: Reports: None Worsens with: Reports: None Associated Symptoms: Reports: N - Related Data Allergies/Adverse Reactions: Allergies Allergy/AdvReac Type Severity Reaction Status Date / Time No Known Allergies Allergy Verified 04/28/18 00:29 Home Medications: Home Meds Multivitamin [Multi-Vitamin Daily] 1 each PO 04/28/18 [History] Past Medical History Genitourinary History: Reports: Other (See Below) Other Genitourinary History: At age of 2 pt had surgery to remove an extra ureter MANAGER ANALYSIS History: Reports: Dermatologic History: Reports: Other (See Below) Other Dermatologic History: Acne - Past Surgical History HEENT Surgical History: Reports: Eye Surgery Female Surgical History: Reports: None Social & Family History - Family History Family Medical History: Noncontributory - Tobacco Use Smoking Status *Q: Never Smoker Second Hand Smoke Exposure: No - Caffeine Use Caffeine Use: Reports: Coffee - Recreational Drug Use Recreational Drug Use: No H&P Review of Systems - Review of Systems: Review Of Systems: See Below General: Reports: No Symptoms HEENT: Reports: No Symptoms Pulmonary: Reports: No Symptoms Cardiovascular: Reports: No Symptoms Gastrointestinal: Reports: No Symptoms Genitourinary: Reports: No Symptoms Musculoskeletal: Reports: No Symptoms Skin: Reports: No Symptoms Psychiatric: Reports: No Symptoms Neurological: Reports: No Symptoms Hematologic/Lymphatic: Reports: No Symptoms Immunologic: Reports: No Symptoms L&D Exam - Exam Exam: See Below - Vital Signs Weight: 92.079 kg - OB Specific Contraction Intensity: Moderate Movement: Active Heart Tones: Present Heart Tones per Min: 131 Heart Rate (FHR) Variability: Moderate (6-25 bmp) Presentation: Vertex - Shaver Score Shaver Score Cervix Position: Midposition Shaver Score Consistency: Soft Shaver Score Effacement: >80% Shaver Score Dilation: 3-4 cm Shaver Score Infant's Station: -2 Shaver Score Total: 9 - Exam HEENT: Conjunctiva Clear, Hearing Intact Lungs: Clear to Auscultation, Normal Respiratory Effort. No: Decreased Breath Sounds Cardiovascular: Regular Rate, Regular Rhythm, Normal S1, Normal S2 GI/Abdominal Exam: Soft, Non-Tender, No Distention, Pelvis Stable Rectal Exam: Deferred Genitourinary: Normal external exam, Normal bimanual exam, Cervical dilitation, Cervical fluid. No: Vaginal bleeding Back Exam: Normal Inspection, Full Range of Motion Extremities: Normal Inspection, Normal Range of Motion, Non-Tender, No Pedal Edema Skin: Warm, Dry, Intact Neurological: Cranial Nerves Intact, Strength Equal Bilateral, Normal Speech, Normal Tone, Sensation Intact Psychiatric: Alert, Normal Affect, Normal Mood - Patient Data Lab Results Last 24 hrs: Laboratory Results - last 24 hr 12/03/19 12/03/19 Range/Units 06:38 06:38 WBC 9.49 (4.0-11.0) K/uL RBC 3.62 L (4.30-5.90) M/uL Hgb 10.3 L (12.0-16.0) g/dL Hct 32.8 L (36.0-46.0) % MCV 90.6 (80.0-98.0) fL MCH 28.5 (27.0-32.0) pg MCHC 31.4 (31.0-37.0) g/dL RDW Std Deviation 43.4 (28.0-62.0) fl RDW Coeff of Deyvi 13 (11.0-15.0) % Plt Count 167 (150-400) K/uL MPV 11.90 (7.40-12.00) fL Nucleated RBC % 0.0 /100WBC Nucleated RBCs # 0 K/uL Blood Type A POSITIVE Antibody Screen NEGATIVE Result Diagrams: 12/03/19 06:38 - Problem List (1) Supervision of normal IUP (intrauterine ) in multigravida SNOMED Code(s): 959591326, 343508427, 547739801 ICD Code: Z34.80 - ENCOUNTER FOR SUPRVSN OF NORMAL , UNSP TRIMESTER Status: Acute Priority: High Current Visit: Yes Qualifiers: Trimester: third trimester Qualified Code(s): Z34.83 - Encounter for supervision of other normal , third trimester Problem List Initiated/Reviewed/Updated: Yes Orders Last 24hrs: Active Orders 24 hr Category Date Time Status Patient Status [ADT] Routine ADT 12/03/19 05:23 Active Bedrest Bathroom Privileges [RC] ASDIRECTED Care 12/03/19 05:23 Active Communication Order [RC] ASDIRECTED Care 12/03/19 05:23 Active Communication Order [RC] ASDIRECTED Care 12/03/19 05:23 Active Communication Order [RC] ASDIRECTED Care 12/03/19 05:23 Active Heart Tones [RC] CONTINUOUS Care 12/03/19 05:23 Active Non Stress Test [RC] PER UNIT ROUTINE Care 12/03/19 05:23 Active May Shower [RC] ASDIRECTED Care 12/03/19 05:23 Active Notify Provider [RC] PRN Care 12/03/19 05:23 Active Notify Provider [RC] PRN Care 12/03/19 05:23 Active Notify Provider [RC] PRN Care 12/03/19 05:23 Active Notify Provider [RC] STAT Care 12/03/19 05:23 Active Oxygen Therapy [RC] ASDIRECTED Care 12/03/19 05:23 Active Up ad Sandra [RC] ASDIRECTED Care 12/03/19 05:23 Active Vaginal Exam [RC] PRN Care 12/03/19 05:23 Active Vaginal Exam [RC] PRN Care 12/03/19 05:23 Active Vital Signs [RC] PER UNIT ROUTINE Care 12/03/19 05:23 Active Vital Signs [RC] PER UNIT ROUTINE Care 12/03/19 05:23 Active RPR (SYPHILIS SERO) W/ RFLX [REF] Routine Lab 12/03/19 06:35 Received Butorphanol [Stadol] Med 12/03/19 05:23 Active 1 mg IVPUSH Q1H PRN Carboprost Tromethamine [Hemabate DS] Med 12/03/19 05:23 Active 250 mcg IM ASDIRECTED PRN Lactated Ringers [Ringers, Lactated] 1,000 ml Med 12/03/19 05:30 Active IV ASDIRECTED Lidocaine 1% [Xylocaine 1%] Med 12/03/19 05:23 Active 50 ml INJECT ONETIME PRN Methylergonovine [Methergine] Med 12/03/19 05:23 Active 0.2 mg IM ASDIRECTED PRN Nalbuphine [Nubain] Med 12/03/19 05:23 Active 10 mg IVPUSH Q1H PRN Ondansetron [Zofran] Med 12/03/19 05:23 Active 4 mg IVPUSH Q4H PRN Oxytocin/0.9 % Sodium Chloride [Oxytocin 30 Unit/500 ML Med 12/03/19 05:30 Active -NS] 30 unit in 500 ml IV TITRATE Oxytocin/0.9 % Sodium Chloride [Oxytocin 30 Unit/500 ML Med 12/03/19 05:30 Active -NS] 30 unit in 500 ml IV TITRATE Sodium Chloride 0.9% [Normal Saline] Med 12/03/19 05:23 Active 10 ml IV ASDIRECTED PRN Sodium Chloride 0.9% [Saline Flush] Med 12/03/19 05:23 Active 10 ml FLUSH ASDIRECTED PRN Sodium Chloride 0.9% [Saline Flush] Med 12/03/19 05:23 Active 2.5 ml FLUSH ASDIRECTED PRN Terbutaline [Brethine] Med 12/03/19 05:23 Active 0.25 mg SUBCUT ASDIRECTED PRN Tranexamic Acid [Cyklokapron] 1,000 mg Med 12/03/19 05:23 Active Sodium Chloride 0.9% [Normal Saline] 100 ml IV ONETIME Water For Irrigation,Sterile [Sterile Water for Med 12/03/19 05:23 Active Irrigation] 1,000 ml IRR ASDIRECTED PRN miSOPROStoL [Cytotec] Med 12/03/19 05:23 Active 200 mcg PO ONETIME PRN miSOPROStoL [Cytotec] Med 12/03/19 11:30 Active 25 mcg PO Q4H miSOPROStoL [Cytotec] Med 12/03/19 05:23 Active 25 mcg VAG ONETIME PRN miSOPROStoL [Cytotec] Med 12/03/19 05:23 Active 25 mcg VAG Q4H PRN Scalp Electrode [WOMSER] Per Unit Routine Oth 12/03/19 05:23 Ordered Medication Administration Instruction [OM.PC] Q3H Oth 12/03/19 05:30 Ordered Peripheral IV Insertion Adult [OM.PC] Routine Oth 12/03/19 05:23 Ordered Resuscitation Status Routine Resus Stat 12/03/19 05:23 Ordered Medication Orders Butorphanol Tartrate (Stadol) 1 mg IVPUSH Q1H PRN PRN Reason: Pain Carboprost Tromethamine (Hemabate Ds) 250 mcg IM ASDIRECTED PRN PRN Reason: Post Hemorrhage Lactated Ringer's (Ringers, Lactated) 1,000 mls @ 150 mls/hr IV ASDIRECTED KANDI Last Admin: 12/03/19 15:38 Dose: 150 mls/hr Infusion: 12/03/19 13:59 Dose: 150 mls/hr Admin: 12/03/19 07:18 Dose: 150 mls/hr Oxytocin/Sodium Chloride (Oxytocin 30 Unit/500 Ml-Ns) 30 unit in 500 mls @ 999 mls/hr IV TITRATE KANDI Oxytocin/Sodium Chloride (Oxytocin 30 Unit/500 Ml-Ns) 30 unit in 500 mls @ 2 mls/hr IV TITRATE KANDI; Protocol Tranexamic Acid 1,000 mg/ (Sodium Chloride) 110 mls @ 660 mls/hr IV ONETIME PRN PRN Reason: Bleeding Lidocaine HCl (Xylocaine 1%) 50 ml INJECT ONETIME PRN PRN Reason: Laceration repair Methylergonovine Maleate (Methergine) 0.2 mg IM ASDIRECTED PRN PRN Reason: Post Hemorrhage Misoprostol (Cytotec) 200 mcg PO ONETIME PRN PRN Reason: Post Hemorrhage Misoprostol (Cytotec) 25 mcg VAG ONETIME PRN PRN Reason: Cervical Ripening Last Admin: 12/03/19 07:21 Dose: 25 mcg Misoprostol (Cytotec) 25 mcg VAG Q4H PRN PRN Reason: Cervical Ripening Last Admin: 12/03/19 11:20 Dose: 25 mcg Misoprostol (Cytotec) 25 mcg PO Q4H KANDI Last Admin: 12/03/19 11:20 Dose: 25 mcg Nalbuphine HCl (Nubain) 10 mg IVPUSH Q1H PRN PRN Reason: Pain (severe 7-10) Ondansetron HCl (Zofran) 4 mg IVPUSH Q4H PRN PRN Reason: Nausea/Vomiting Sodium Chloride (Saline Flush) 10 ml FLUSH ASDIRECTED PRN PRN Reason: Keep Vein Open Sodium Chloride (Saline Flush) 2.5 ml FLUSH ASDIRECTED PRN PRN Reason: Keep Vein Open Sodium Chloride (Normal Saline) 10 ml IV ASDIRECTED PRN PRN Reason: IV Use Sterile Water (Sterile Water For Irrigation) 1,000 ml IRR ASDIRECTED PRN PRN Reason: delivery Terbutaline Sulfate (Brethine) 0.25 mg SUBCUT ASDIRECTED PRN PRN Reason: Tacysystole Assessment/Plan Comment:: IOL A: 24yo EDC 12/10/2019 39 0/7wks, A+, RI, GBS neg. IOL for term P: Admit, cytotec to pitocin if needed, epidural now, anticipate , Dr Solis updated.
[2019-12-03] MEDS ORDERED: Ropivacaine 0.2% PF 2 MG/ML 20 ML SDV ONE (16:35)
[2019-12-03] MEDS ORDERED: Bupivicaine/fentaNYL/NS 250 ML ONE (16:35)
--- NOTE | 2019-12-03 17:12 | PCM.PREANE ---
Preanesthetic Assessment - Procedure Proposed Procedure: labor epidural - Anesthesia/Transfusion/Family Hx Anesthesia History: Prior Anesthesia Without Reaction Family History of Anesthesia Reaction: No Transfusion History: No Prior Transfusion(s) Intubation History: Unknown - Review of Systems General: No Symptoms Pulmonary: Cough Cardiovascular: No Symptoms Gastrointestinal: No Symptoms Neurological: No Symptoms Other: Reports: None - Physical Assessment Height: 5 ft 8 in Weight: 92.079 kg ASA Class: 2 Mental Status: Alert & Oriented x3 Airway Class: Mallampati = 1 Dentition: Reports: Normal Dentition Thyro-Mental Finger Breadths: 3 Mouth Opening Finger Breadths: 3 ROM/Head Extension: Full Lungs: Clear to Auscultation, Normal Respiratory Effort - Lab Values: Laboratory Last Values WBC 9.49 K/uL (4.0-11.0) 12/03/19 06:38 RBC 3.62 M/uL (4.30-5.90) L 12/03/19 06:38 Hgb 10.3 g/dL (12.0-16.0) L 12/03/19 06:38 Hct 32.8 % (36.0-46.0) L 12/03/19 06:38 MCV 90.6 fL (80.0-98.0) 12/03/19 06:38 MCH 28.5 pg (27.0-32.0) 12/03/19 06:38 MCHC 31.4 g/dL (31.0-37.0) 12/03/19 06:38 RDW Std Deviation 43.4 fl (28.0-62.0) 12/03/19 06:38 RDW Coeff of Deyvi 13 % (11.0-15.0) 12/03/19 06:38 Plt Count 167 K/uL (150-400) 12/03/19 06:38 MPV 11.90 fL (7.40-12.00) 12/03/19 06:38 Nucleated RBC % 0.0 /100WBC 12/03/19 06:38 Nucleated RBCs # 0 K/uL 12/03/19 06:38 Blood Type A POSITIVE 12/03/19 06:38 Antibody Screen NEGATIVE 12/03/19 06:38 - Allergies Allergies/Adverse Reactions: Allergies Allergy/AdvReac Type Severity Reaction Status Date / Time No Known Allergies Allergy Verified 04/28/18 00:29 - Blood Blood Available: Yes Product(s) Available: PRBC - Anesthesia Plan Pre-Op Medication Ordered: None - Acknowledgements Anesthesia Type Planned: Epidural Pt an Appropriate Candidate for the Planned Anesthesia: Yes Alternatives and Risks of Anesthesia Discussed w Pt/Guardian: Yes Pt/Guardian Understands and Agrees with Anesthesia Plan: Yes PreAnesthesia Questionnaire Genitourinary History: Reports: Other (See Below) Other Genitourinary History: At age of 2 pt had surgery to remove an extra ureter 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: Dermatologic History: Reports: Other (See Below) Other Dermatologic History: Acne - Past Surgical History HEENT Surgical History: Reports: Eye Surgery Female Surgical History: Reports: None - SUBSTANCE USE Smoking Status *Q: Never Smoker Second Hand Smoke Exposure: No Recreational Drug Use History: No - HOME MEDS Home Medications: Home Meds Multivitamin [Multi-Vitamin Daily] 1 each PO 04/28/18 [History] - CURRENT (IN HOUSE) MEDS Current Meds: Current Medications Butorphanol Tartrate (Stadol) 1 mg IVPUSH Q1H PRN PRN Reason: Pain Carboprost Tromethamine (Hemabate Ds) 250 mcg IM ASDIRECTED PRN PRN Reason: Post Hemorrhage Lactated Ringer's (Ringers, Lactated) 1,000 mls @ 150 mls/hr IV ASDIRECTED KANDI Last Admin: 12/03/19 15:38 Dose: 150 mls/hr Oxytocin/Sodium Chloride (Oxytocin 30 Unit/500 Ml-Ns) 30 unit in 500 mls @ 999 mls/hr IV TITRATE KANDI Oxytocin/Sodium Chloride (Oxytocin 30 Unit/500 Ml-Ns) 30 unit in 500 mls @ 2 mls/hr IV TITRATE KANDI; Protocol Tranexamic Acid 1,000 mg/ (Sodium Chloride) 110 mls @ 660 mls/hr IV ONETIME PRN PRN Reason: Bleeding Lidocaine HCl (Xylocaine 1%) 50 ml INJECT ONETIME PRN PRN Reason: Laceration repair Methylergonovine Maleate (Methergine) 0.2 mg IM ASDIRECTED PRN PRN Reason: Post Hemorrhage Misoprostol (Cytotec) 200 mcg PO ONETIME PRN PRN Reason: Post Hemorrhage Misoprostol (Cytotec) 25 mcg VAG ONETIME PRN PRN Reason: Cervical Ripening Last Admin: 12/03/19 07:21 Dose: 25 mcg Misoprostol (Cytotec) 25 mcg VAG Q4H PRN PRN Reason: Cervical Ripening Last Admin: 12/03/19 11:20 Dose: 25 mcg Misoprostol (Cytotec) 25 mcg PO Q4H KANDI Last Admin: 12/03/19 11:20 Dose: 25 mcg Nalbuphine HCl (Nubain) 10 mg IVPUSH Q1H PRN PRN Reason: Pain (severe 7-10) Ondansetron HCl (Zofran) 4 mg IVPUSH Q4H PRN PRN Reason: Nausea/Vomiting Sodium Chloride (Saline Flush) 10 ml FLUSH ASDIRECTED PRN PRN Reason: Keep Vein Open Sodium Chloride (Saline Flush) 2.5 ml FLUSH ASDIRECTED PRN PRN Reason: Keep Vein Open Sodium Chloride (Normal Saline) 10 ml IV ASDIRECTED PRN PRN Reason: IV Use Sterile Water (Sterile Water For Irrigation) 1,000 ml IRR ASDIRECTED PRN PRN Reason: delivery Terbutaline Sulfate (Brethine) 0.25 mg SUBCUT ASDIRECTED PRN PRN Reason: Tacysystole Discontinued Medications Fentanyl/Bupivacaine HCl (Fentanyl/Bupivacaine/Ns 2 Mcg-0.125% 250 Ml) Confirm Administered Dose 250 mls @ as directed .ROUTE .STK-MED ONE Stop: 12/03/19 16:36 Misoprostol (Cytotec) 25 mcg PO ONETIME ONE Stop: 12/03/19 05:32 Last Admin: 12/03/19 07:21 Dose: 25 mcg Ropivacaine (Naropin 0.2%) Confirm Administered Dose 20 ml .ROUTE .STK-MED ONE Stop: 12/03/19 16:36
--- NOTE | 2019-12-03 18:53 | PCM.DEL ---
L & D Note - General Info Date of Service: 12/03/19 Mother's Due Date: 12/10/19 - Delivery Note Labor: Spontaneous Delivery Outcome: Livebirth Infant Delivery Method: Spontaneous Vaginal Delivery-Single Delivery Mode: Spontaneous Presentation: Vertex Nuchal Cord: None Anesthesia Type: Epidural Amniotic Fluid Description: Clear Episiotomy Type: None Laceration: None Placenta: Intact, Spontaneous Score 1 min: 9 Score 5 min: 9 Second Stage Interventions: Reports: Pushing, Pulls Own Legs Back Delivery Comments (Free Text/Narrative):: of viable male. Head delivered with good pushing, shoulders and body followed easily. with spont cry placed on mothers abdomen. RN at for evaluation of infant. Delayed cord clamping. Pitocin to IVF. Cord clamped and cut. Cord blood collected. Placenta delivered grossly intact. Inspection noted intact perineum. EBL 100. APGARS 9/9, WT: pending bonding. Mother and baby left in stable condition for recovery. - General Info Date of Service: 12/03/19 Admission Dx/Problem (Free Text): Patient Status Order with Admit Dx/Problem 12/03/19 05:23 Patient Status [ADT] Routine Admission Diagnosis/Problem Admission Diagnosis/Problem 12/03/19 15:50 24yo EDC 12/10/2019 39 0/7wks, A+, RI, GBS neg. IOL for term Functional Status: Reports: Pain Controlled - Review of Systems General: Reports: No Symptoms HEENT: Reports: No Symptoms Pulmonary: Reports: No Symptoms Cardiovascular: Reports: No Symptoms Gastrointestinal: Reports: No Symptoms Genitourinary: Reports: No Symptoms Musculoskeletal: Reports: No Symptoms Skin: Reports: No Symptoms Neurological: Reports: No Symptoms Psychiatric: Reports: No Symptoms - Patient Data Weight - Most Recent: 92.079 kg Lab Results Last 24 Hours: Laboratory Results - last 24 hr 12/03/19 12/03/19 Range/Units 06:38 06:38 WBC 9.49 (4.0-11.0) K/uL RBC 3.62 L (4.30-5.90) M/uL Hgb 10.3 L (12.0-16.0) g/dL Hct 32.8 L (36.0-46.0) % MCV 90.6 (80.0-98.0) fL MCH 28.5 (27.0-32.0) pg MCHC 31.4 (31.0-37.0) g/dL RDW Std Deviation 43.4 (28.0-62.0) fl RDW Coeff of Deyvi 13 (11.0-15.0) % Plt Count 167 (150-400) K/uL MPV 11.90 (7.40-12.00) fL Nucleated RBC % 0.0 /100WBC Nucleated RBCs # 0 K/uL Blood Type A POSITIVE Antibody Screen NEGATIVE Med Orders - Current: Current Medications Butorphanol Tartrate (Stadol) 1 mg IVPUSH Q1H PRN PRN Reason: Pain Carboprost Tromethamine (Hemabate Ds) 250 mcg IM ASDIRECTED PRN PRN Reason: Post Hemorrhage Lactated Ringer's (Ringers, Lactated) 1,000 mls @ 150 mls/hr IV ASDIRECTED KANDI Last Admin: 12/03/19 15:38 Dose: 150 mls/hr Oxytocin/Sodium Chloride (Oxytocin 30 Unit/500 Ml-Ns) 30 unit in 500 mls @ 999 mls/hr IV TITRATE KANDI Oxytocin/Sodium Chloride (Oxytocin 30 Unit/500 Ml-Ns) 30 unit in 500 mls @ 2 mls/hr IV TITRATE KANDI; Protocol Tranexamic Acid 1,000 mg/ (Sodium Chloride) 110 mls @ 660 mls/hr IV ONETIME PRN PRN Reason: Bleeding Lidocaine HCl (Xylocaine 1%) 50 ml INJECT ONETIME PRN PRN Reason: Laceration repair Methylergonovine Maleate (Methergine) 0.2 mg IM ASDIRECTED PRN PRN Reason: Post Hemorrhage Misoprostol (Cytotec) 200 mcg PO ONETIME PRN PRN Reason: Post Hemorrhage Misoprostol (Cytotec) 25 mcg VAG ONETIME PRN PRN Reason: Cervical Ripening Last Admin: 12/03/19 07:21 Dose: 25 mcg Misoprostol (Cytotec) 25 mcg VAG Q4H PRN PRN Reason: Cervical Ripening Last Admin: 12/03/19 11:20 Dose: 25 mcg Misoprostol (Cytotec) 25 mcg PO Q4H KANDI Last Admin: 12/03/19 11:20 Dose: 25 mcg Nalbuphine HCl (Nubain) 10 mg IVPUSH Q1H PRN PRN Reason: Pain (severe 7-10) Ondansetron HCl (Zofran) 4 mg IVPUSH Q4H PRN PRN Reason: Nausea/Vomiting Sodium Chloride (Saline Flush) 10 ml FLUSH ASDIRECTED PRN PRN Reason: Keep Vein Open Sodium Chloride (Saline Flush) 2.5 ml FLUSH ASDIRECTED PRN PRN Reason: Keep Vein Open Sodium Chloride (Normal Saline) 10 ml IV ASDIRECTED PRN PRN Reason: IV Use Sterile Water (Sterile Water For Irrigation) 1,000 ml IRR ASDIRECTED PRN PRN Reason: delivery Terbutaline Sulfate (Brethine) 0.25 mg SUBCUT ASDIRECTED PRN PRN Reason: Tacysystole Discontinued Medications Fentanyl/Bupivacaine HCl (Fentanyl/Bupivacaine/Ns 2 Mcg-0.125% 250 Ml) Confirm Administered Dose 250 mls @ as directed .ROUTE .STK-MED ONE Stop: 12/03/19 16:36 Misoprostol (Cytotec) 25 mcg PO ONETIME ONE Stop: 12/03/19 05:32 Last Admin: 12/03/19 07:21 Dose: 25 mcg Ropivacaine (Naropin 0.2%) Confirm Administered Dose 20 ml .ROUTE .STK-MED ONE Stop: 12/03/19 16:36 - Exam General: Alert, Oriented Lungs: Normal Respiratory Effort GI/Abdominal Exam: Soft, Non-Tender (Female) Exam: Normal External Exam, Normal Bimanual Exam, Vaginal Bleeding. No: Cervical Lesions, Vaginal Lesions, Vaginal Tears Back Exam: Normal Inspection, Full Range of Motion Extremities: Normal Inspection, Normal Range of Motion, Non-Tender, No Pedal Edema Skin: Warm, Dry, Intact Neurological: No New Focal Deficit, Normal Gait, Normal Speech, Normal Tone, Sensation Intact Psy/Mental Status: Alert, Normal Affect, Normal Mood - Problem List & Annotations (1) Supervision of normal IUP (intrauterine ) in multigravida SNOMED Code(s): 631442735, 789868529, 930421581 Code(s): Z34.80 - ENCOUNTER FOR SUPRVSN OF NORMAL , UNSP TRIMESTER Status: Acute Priority: High Current Visit: Yes Qualifiers: Trimester: third trimester Qualified Code(s): Z34.83 - Encounter for supervision of other normal , third trimester (2) (normal spontaneous vaginal delivery) SNOMED Code(s): 30421379, 395866893 Code(s): O80 - ENCOUNTER FOR FULL-TERM UNCOMPLICATED DELIVERY Status: Acute Priority: High Current Visit: No - Problem List Review Problem List Initiated/Reviewed/Updated: Yes - My Orders Last 24 Hours: My Active Orders 12/03/19 11:30 miSOPROStoL [Cytotec] 25 mcg PO Q4H - Plan Plan:: IOL A: 24yo EDC 12/10/2019 39 0/7wks, A+, RI, GBS neg. IOL for term P: Admit, cytotec to pitocin if needed, epidural now, anticipate , Dr Solis updated. Delivery A: of healthy male, AGPARS 04/17, WT: pending, EBL 100cc, Intact perineum. Stable P: Routine pp plan of care.
[2019-12-03] MEDS ORDERED: Ibuprofen 400 MG Tab PO PRN (18:58)
[2019-12-03] MEDS ORDERED: Benzocaine/Menthol 20%-0.5% Spray 78 GM Cannister TOP PRN (18:58)
[2019-12-03] MEDS ORDERED: Witch Hazel Medicated Pads 40/Jar TOP PRN (18:58)
[2019-12-03] MEDS ORDERED: Lanolin 100% Cream 7 GM Tube TOP PRN (18:58)
[2019-12-03] MEDS ORDERED: Ibuprofen 800 MG Tab PO PRN (18:58)
[2019-12-03] MEDS ORDERED: Bisacodyl 10 MG Supp RECTAL PRN (18:58)
[2019-12-03] MEDS ORDERED: Acetaminophen 500 MG Tab PO PRN ×2 (18:58)
[2019-12-03] MEDS ORDERED: oxyCODONE 5 MG Tab PO PRN (18:58)
[2019-12-03] MEDS ORDERED: Docusate Sodium 100 MG Cap PO PRN (18:58)
--- NOTE | 2019-12-04 06:09 | PCM48HPAN ---
Post Anesthesia Note - EVALUATION WITHIN 48HRS OF ANESTHETIC Vital Signs in Normal Range: Yes Patient Participated in Evaluation: Yes Respiratory Function Stable: Yes Airway Patent: Yes Cardiovascular Function Stable: Yes Hydration Status Stable: Yes Pain Control Satisfactory: Yes Nausea and Vomiting Control Satisfactory: Yes Mental Status Recovered: Yes Vital Signs: Last Vital Signs Temp 36.0 C L 12/04/19 04:22 Pulse 75 12/04/19 04:22 Resp 16 12/04/19 04:22 BP 135/85 12/04/19 04:22 Pulse Ox 99 12/04/19 04:22
--- NOTE | 2019-12-04 08:54 | PCM.DCSUM1 ---
Discharge Summary - Hospital Course Free Text/Narrative:: Robyn is a 24 yo PPD1 S/P uncomplicated to viable term NBM. A pos, RI , GBS neg. Hemodynamically stable. Breast+bottle feeding well. Patient verbalizes a readiness and desire to be discharged home today pending supervisor assembly. Diagnosis: Stroke: No - Discharge Data Discharge Date: 12/04/19 Discharge Disposition: Home, Self-Care 01 Condition: Good - Referral to Home Health Primary Care Physician: PCP None - Patient Instructions Diet: Regular Diet as Tolerated, Drink 8-10+ Glasses/Day Activity: Apply Ice, Full Weight Bearing, No Strenuous Activities Driving: May Drive Today Showering/Bathing: May Shower Notify Provider of: Fever, Increased Pain, Swelling and Redness, Drainage, Nausea and/or Vomiting - Discharge Plan *PRESCRIPTION DRUG MONITORING PROGRAM REVIEWED*: No *COPY OF PRESCRIPTION DRUG MONITORING REPORT IN PATIENT JAMES: No Prescriptions/Med Rec: Ibuprofen [Motrin] 800 mg PO Q8H PRN #90 tablet PRN Reason: Pain Home Medications: Home Meds Multivitamin [Multi-Vitamin Daily] 1 each PO 04/28/18 [History] Ibuprofen [Motrin] 800 mg PO Q8H PRN #90 tablet 12/04/19 [Rx] Oxygen Therapy Mode: Room Air - Discharge Summary/Plan Comment DC Time >30 min.: Yes Discharge Summary/Plan Comment: Robyn is a 24 yo PPD1 S/P uncomplicated to viable term NBM. A pos, RI , GBS neg. Hemodynamically stable. Breast+bottle feeding well. Patient verbalizes a readiness and desire to be discharged home today pending supervisor assembly. warning S/S, when to call for help discussed with patient. She has no questions or concerns at this time. OK to discharge home. - General Info Date of Service: 12/04/19 Admission Dx/Problem (Free Text: Patient Status Order with Admit Dx/Problem 12/03/19 05:23 Patient Status [ADT] Routine Admission Diagnosis/Problem Admission Diagnosis/Problem 12/03/19 15:50 24yo EDC 12/10/2019 39 0/7wks, A+, RI, GBS neg. IOL for term Functional Status: Reports: Pain Controlled - Review of Systems General: Reports: No Symptoms HEENT: Reports: No Symptoms Pulmonary: Reports: No Symptoms Cardiovascular: Reports: No Symptoms Gastrointestinal: Reports: No Symptoms Genitourinary: Reports: No Symptoms Musculoskeletal: Reports: No Symptoms Skin: Reports: No Symptoms Neurological: Reports: No Symptoms Psychiatric: Reports: No Symptoms - Patient Data Vitals - Most Recent: Last Vital Signs Temp 96.8 F L 12/04/19 04:22 Pulse 75 12/04/19 04:22 Resp 16 12/04/19 04:22 BP 135/85 12/04/19 04:22 Pulse Ox 99 12/04/19 04:22 Weight - Most Recent: 203 lb I&O - Last 24 hours: Intake & Output 12/03/19 12/04/19 12/04/19 22:59 06:59 14:59 Output Total 300 Balance -300 Med Orders - Current: Current Medications Acetaminophen (Tylenol Extra Strength) 500 mg PO Q4H PRN PRN Reason: Pain Acetaminophen (Tylenol Extra Strength) 1,000 mg PO Q4H PRN PRN Reason: Pain Benzocaine/Menthol (Dermoplast Pain Relief 20%-0.5% [place]) 78 gm TOP ASDIRECTED PRN PRN Reason: Perineal Comfort Measure Last Admin: 12/03/19 21:00 Dose: 1 spray Bisacodyl (Dulcolax) 10 mg RECTAL ONETIME PRN PRN Reason: Constipation Docusate Sodium (Colace) 100 mg PO BID PRN PRN Reason: Constipation Emollient Ointment (Lansinoh Hpa) 0 gm TOP ASDIRECTED PRN PRN Reason: Sore Nipples Last Admin: 12/03/19 21:01 Dose: 1 gm Ibuprofen (Motrin) 400 mg PO Q4H PRN PRN Reason: Pain Ibuprofen (Motrin) 800 mg PO Q6H PRN PRN Reason: Pain Last Admin: 12/04/19 00:46 Dose: 800 mg Oxycodone HCl (Oxycodone) 5 mg PO Q2H PRN PRN Reason: Pain Witch Concepcion (Tucks) 1 pad TOP ASDIRECTED PRN PRN Reason: comfort care Last Admin: 12/03/19 21:00 Dose: 1 pad Discontinued Medications Butorphanol Tartrate (Stadol) 1 mg IVPUSH Q1H PRN PRN Reason: Pain Carboprost Tromethamine (Hemabate Ds) 250 mcg IM ASDIRECTED PRN PRN Reason: Post Hemorrhage Lactated Ringer's (Ringers, Lactated) 1,000 mls @ 150 mls/hr IV ASDIRECTED KANDI Last Admin: 12/03/19 15:38 Dose: 150 mls/hr Oxytocin/Sodium Chloride (Oxytocin 30 Unit/500 Ml-Ns) 30 unit in 500 mls @ 999 mls/hr IV TITRATE KANDI Last Admin: 12/03/19 18:37 Dose: 500 mls/hr Oxytocin/Sodium Chloride (Oxytocin 30 Unit/500 Ml-Ns) 30 unit in 500 mls @ 2 mls/hr IV TITRATE KANDI; Protocol Tranexamic Acid 1,000 mg/ (Sodium Chloride) 110 mls @ 660 mls/hr IV ONETIME PRN PRN Reason: Bleeding Fentanyl/Bupivacaine HCl (Fentanyl/Bupivacaine/Ns 2 Mcg-0.125% 250 Ml) Confirm Administered Dose 250 mls @ as directed .ROUTE .[facility] ONE Stop: 12/03/19 16:36 Lidocaine HCl (Xylocaine 1%) 50 ml INJECT ONETIME PRN PRN Reason: Laceration repair Methylergonovine Maleate (Methergine) 0.2 mg IM ASDIRECTED PRN PRN Reason: Post Hemorrhage Misoprostol (Cytotec) 200 mcg PO ONETIME PRN PRN Reason: Post Hemorrhage Misoprostol (Cytotec) 25 mcg VAG ONETIME PRN PRN Reason: Cervical Ripening Last Admin: 12/03/19 07:21 Dose: 25 mcg Misoprostol (Cytotec) 25 mcg VAG Q4H PRN PRN Reason: Cervical Ripening Last Admin: 12/03/19 11:20 Dose: 25 mcg Misoprostol (Cytotec) 25 mcg PO ONETIME ONE Stop: 12/03/19 05:32 Last Admin: 12/03/19 07:21 Dose: 25 mcg Misoprostol (Cytotec) 25 mcg PO Q4H KANDI Last Admin: 12/03/19 11:20 Dose: 25 mcg Nalbuphine HCl (Nubain) 10 mg IVPUSH Q1H PRN PRN Reason: Pain (severe 7-10) Ondansetron HCl (Zofran) 4 mg IVPUSH Q4H PRN PRN Reason: Nausea/Vomiting Ropivacaine (Naropin 0.2%) Confirm Administered Dose 20 ml .ROUTE .SLID ONE Stop: 12/03/19 16:36 Sodium Chloride (Saline Flush) 10 ml FLUSH ASDIRECTED PRN PRN Reason: Keep Vein Open Sodium Chloride (Saline Flush) 2.5 ml FLUSH ASDIRECTED PRN PRN Reason: Keep Vein Open Sodium Chloride (Normal Saline) 10 ml IV ASDIRECTED PRN PRN Reason: IV Use Sterile Water (Sterile Water For Irrigation) 1,000 ml IRR ASDIRECTED PRN PRN Reason: delivery Terbutaline Sulfate (Brethine) 0.25 mg SUBCUT ASDIRECTED PRN PRN Reason: Tacysystole - Exam General: Reports: Alert, Oriented HEENT: Reports: Pupils Equal, Pupils Reactive, Mucous Membr. Moist/[place] Neck: Reports: Supple Lungs: Reports: Clear to Auscultation, Normal Respiratory Effort Cardiovascular: Reports: Regular Rate, Regular Rhythm GI/Abdominal Exam: Normal Bowel Sounds, Soft, Non-Tender, No Organomegaly, No Distention (Female) Exam: Vaginal Bleeding (Small to moderate rubra lochia) Rectal (Female) Exam: Deferred Back Exam: Reports: Normal Inspection, Full Range of Motion Extremities: Normal Inspection, Normal Range of Motion, Non-Tender, No Pedal Edema, Normal Capillary Refill Skin: Reports: Warm, Dry, Intact Neurological: Reports: No New Focal Deficit Psy/Mental Status: Reports: Alert, Normal Affect, Normal Mood
[2019-12-04] MEDS ORDERED: Benzonatate 100 MG Cap PO PRN (11:23)
== END 2019-12-04 21:09 | disposition home or self-care (01) | DRG 807 ==
LOC: MW.OBCHECK 05:08 → MW.OB 05:09 → OBSVTOIN 18:34 → MW.OB 18:34
PROVIDERS: ADMIT Obstetrics & Gynecology; ATTEND Obstetrics & Gynecology
PROC: 10E0XZZ Delivery of Products of Conception, External Approach (ICD-10-PCS; principal; 2019-12-03)
PROC: 3E0R3BZ Introduction of Anesthetic Agent into Spinal Canal, Percutaneous Approach (ICD-10-PCS; 2019-12-03)
PROC: 10907ZC Drainage of Amniotic Fluid, Therapeutic from Products of Conception, Via Natural or Artificial Opening (ICD-10-PCS; 2019-12-03)
DX: O80 Encounter for full-term uncomplicated delivery (principal); Z37.0 Single live birth; Z3A.39 39 weeks gestation of pregnancy
CPT/HCPCS: 36415; 51702; 59025; 59409; 85027; 86592; 86593; 86850; 86900; 86901; A9270-GY; J2590; J7120